=== PATIENT | female | born 1950 | race African-American/Black ===

== ENCOUNTER 2016-07-29 10:16 | Outpatient (CLI) | payer MEDICARE, BC ==
[~2016-07-29] VITALS: Ht 167.6 cm; Wt 98.8 kg
--- NOTE | ~2016-07-29 | CATH ---
Cardiac Diagnostic Report Demographics Patient Name RAYMOND GALO Gender Female A Date of 1950 Age 66 year(s) Patient Number [id number] Date of Study 07/29/2016 Visit Number [id number] Room Number G6399 [place] [id number] Ht 167.64 cm Wt 98.8 kg Referring Nasir Benson MD Primary Physician Physician Performing [place] Secondary Physician Physician Yin EDGAR Diagnostic [facility] Assisting Physician Physician Yin EDGAR Interventional Physician Group Leader [employer] Processing Physician Findings and Conclusions Diagnostic Findings and Conclusion Essentially normal epicardial coronary arteries. LVEDP=19 mmHg. Diagnostic Recommendations Patient will be discharged later today. Patient has been instructed to not lift anything more than 5 pounds for 1 week. Cardiac diet and exercise as tolerated. Optimization of medical therapy as an outpatient. Aggressive medical therapy for CV risk factors. I would like to thank Dr. Best for the opportunity to participate in the care of Mrs Nielson. Procedure Description The patient was brought to the diagnostic cardiac catheterization-EP laboratory in the fasting, non-sedated state. Informed consent was obtained in the written and verbal form after the risks and benefits were explained. The patient had no further questions and agreed to proceed. The planned puncture-incision site(s) were shaved and prepped with ChloraPrep and draped in the usual sterile manner. Conscious sedation and pain control medications were delivered by a registered nurse under physician guidance. Surface ECG rhythm, blood pressure measurement, and pulse oximetry were monitored throughout the procedure. Arterial access. The access site was infiltrated with lidocaine. The vessel was entered with the Seldinger technique. A sheath was advanced into the vessel and used for catheter placement. Selective left coronary angiography. A catheter was advanced into the left coronary vessel ostium under Fluoroscopic guidance. Contrast was injected by hand. Images were obtained in multiple projections. Selective right coronary angiography. A catheter was advanced into the right coronary vessel ostium under fluoroscopic guidance. Contrast was injected by hand. Images were obtained in multiple projections. Left heart catheterization. A catheter was advanced across the aortic valve to the left ventricle under fluoroscopic guidance. Resting hemodynamics were obtained. Arterial artery hemostasis was achieved. The patient was transferred to [facility] via cart accompanied by a nurse. The patient left the laboratory in stable condition. Diagnostic Cath Status: Elective Procedure Procedure Type Diagnostic procedure:Angiography:, Coronary Angios w/[facility] Indications: Unstable angina, Dyspnea with exertion and Fatigue. The procedure was explained in detail to the patient. Risks, complications and alternative treatments were reviewed. Written consent was obtained. Medications Reviewed with Patient prior to Procedure. Angiographic Findings Dominance: Right Cardiac Arteries and Lesion Findings LMCA: Normal (0% Stenosis). LAD: Normal (0% Stenosis). LCx: Normal (0% Stenosis). RCA: Normal (0% Stenosis). Procedure Data Procedure Date Date: 07/29/2016Start: 01:41 PMEnd: 02:05 PM Entry Locations - Antegrade Percutaneous access was performed through the Right Radial artery (Primary location). A 6 Fr sheath was inserted. Hemostasis was successfully obtained using Mechanical Compression. Closure Comments: 20 ml of air in R. Band by Tammy San.. Procedure Medications Order and Administration + + + +-------+ !Time !Medication !Dosage !Route ! + + + +-------+ !07/29/2016 01:26 PM !Versed !1 mg !I.V. ! + + + +-------+ !07/29/2016 01:33 PM !Fentanyl !25 mcg !I.V. ! + + + +-------+ !07/29/2016 01:42 PM !Versed !1 mg !I.V. ! + + + +-------+ !07/29/2016 01:45 PM !Radial Verapamil !2.5 mg !I.A. ! + + + +-------+ !07/29/2016 01:47 PM !Heparin (ACC_3) !5000 units !I.V. ! + + + +-------+ !07/29/2016 01:57 PM !Fentanyl !25 mcg !I.V. ! + + + +-------+ Devices Used - A5 Fr. BS JR 4 Diag. Catheterwas used for:Right coronary angiography. - A5 Fr. BS JL 3.5 Diag. Catheterwas used for:Left coronary angiography. - A5 Fr. BS Angled Pigtail Diag. Catheterwas used for:LV Pressures. Contrast Material - Isovue 97267 ml Fluoroscopy Time: Diagnostic: 2:24 minutes. Total: 2:24 minutes. Fluoroscopy Dose: Diagnostic: 519 mGy. Total: 519 mGy. Estimated Blood Loss: 5 ml. Medical History Allergies - Morphine. Risk Factors The patient risk factors include:obesity, hypercholesterolemia, hypertension, orally-treated diabetes mellitus, last creatinine: 0.9 mg/dl, creatinine clearance: 94.61 ml/min and dyslipidemia. Admission Data Admission Date: 07/29/2016 Admission Time: 10:16 AM Admit Source: Other Insurance Payors: Medicare. Admission Medications + +------+------+ + + + + !Medication !Dosage!Times !Last !Last !Administered !Comments ! ! ! !Per !Delivery !Delivery ! ! ! ! ! !Day !Date !Time ! ! ! + +------+------+ + + + + !Aspirin ! ! ! ! ! ! ! !(any) ! ! ! ! ! ! ! + +------+------+ + + + + !Beta ! ! ! ! ! ! ! !Peggy ! ! ! ! ! ! ! !(any) ! ! ! ! ! ! ! + +------+------+ + + + + !Statin ! ! ! ! ! ! ! !(any) ! ! ! ! ! ! ! + +------+------+ + + + + Clinical Evaluation Leading to Procedure - The patient's CAD presentation was assessed as: Unstable angina. 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 Anti-anginal medications were prescribed during the past two weeks. The medication is: Beta Blockers. - The patient has been in a state of heart failure within the past two weeks. - The patient's heart failure status was assessed as NYHA Class II, with CHF symptoms of VIZCAINO. Snapshots Hemodynamics Condition: Rest O2 Consumption: Estimated: 183.40Heart Rate: 59 bpm Pressures (mmHg) +-----+ + !Site !Pressure ! +-----+ + !LV !146/0 ,20 ! +-----+ + !LV !153/3 ,19 ! +-----+ + !AO !154/72 (107) ! +-----+ + !LV !158/8 ,24 ! +-----+ + Valve Gradients and Areas + +---------+---------+---------+ +---------+ + !Valve !Peak !Mean !Area !Index !Flow !Source ! + +---------+---------+---------+ +---------+ + !Aortic !7 !9 ! ! ! ! ! + +---------+---------+---------+ +---------+ + !Aortic !7 !9 ! ! ! ! ! + +---------+---------+---------+ +---------+ + Shunts Oxygen Values O2 Capacity 167.28 O2 Consumption 183.4 Discharge Data Discharge Date: 07/29/2016 Hospital Status: Outpatient Signatures dtt: YIN MEDINA dtd: 07/29/16 1341 Physician Self Edit
[~2016-07-29 10:16] MED LIST: ASPIRIN EC81 MG PO; JANUMET XR 1001 EACH PO; NEXIUM40 MG PO; TOPROL XL 5050 MG PO; ZOCOR20 MG PO
[2016-07-29 10:56] LABS: BASOPHIL % 0.7 %; EOSINOPHIL # 0.2 K/uL (0.0-0.5); HEMATOCRIT 37.4 % (33.0-46.0); HEMOGLOBIN 12.3 g/dL (10.0-15.0); IMMATURE GRANULOCYTE % 0.2 %; LYMPHOCYTE % 35.1 %; MCH 27.6 pg (27.0-34.0); MCHC 32.9 gm/dL (32.0-36.5); MONOCYTE # 0.5 K/uL (0.0-1.0); MONOCYTE % 8.2 %; MPV 10.1 fl (9.4-12.4); NEUTROPHIL % 51.8 %; NRBC % 0 /100WBC (0-0.00); PLATELET COUNT 225 K/uL (150-450); RBC 4.45 M/uL (3.50-5.50); RDW-CV 13.7 % (11.9-14.6); WBC 5.8 K/uL (4.0-11.0)
[2016-07-29 11:08] LABS: PROTIME 10.3 SECONDS (9.6-11.1); PTT 27 SECONDS (25-32)
[2016-07-29 11:14] LABS: ALBUMIN 3.7 gm/dL (3.5-5.0); ALK PHOS 57 IU/L (33-138); ALT 24 IU/L (12-78); ANION GAP 12.2 (10.0-19.0); AST 20 IU/L (10-40); BLOOD UREA NITROGEN 16 mg/dL (6-24); CALCIUM 9.2 mg/dL (8.5-10.5); CHLORIDE 108 mMol/L (96-110); CO2 27 mMol/L (22-32); CREATININE 0.9 mg/dL (0.5-1.1); ESTIMATED GFR (MDRD EQUATION) > 60; POTASSIUM 4.2 mMol/L (3.7-5.1); SODIUM 143 mMol/L (135-145); TOTAL BILIRUBIN 0.3 mg/dL (0.0-1.5); TOTAL PROTEIN 7.7 g/dL (6.0-8.4)
[2016-07-29] MEDS ORDERED: LASIX20 MG PO (14:43)
== END 2016-07-29 17:45 | disposition disaster alternative care site (69) ==
LOC: GCAT 10:16 → GPCU 10:16 → GPOC 17:00 → GCAT 17:45
PROVIDERS: Internal Medicine Interventional Cardiology
PROC: B2111ZZ Fluoroscopy of Multiple Coronary Arteries using Low Osmolar Contrast (ICD-10-PCS; principal; 2016-07-29)
PROC: 4A023N7 Measurement of Cardiac Sampling and Pressure, Left Heart, Percutaneous Approach (ICD-10-PCS; principal; 2016-07-29)
DX: I20.0 Unstable angina (principal); R06.00 Dyspnea, unspecified; E11.9 Type 2 diabetes mellitus without complications; I10 Essential (primary) hypertension; E78.00 Pure hypercholesterolemia, unspecified; R53.83 Other fatigue; E66.9 Obesity, unspecified; Z79.82 Long term (current) use of aspirin; Z79.84 Long term (current) use of oral hypoglycemic drugs; Z79.899 Other long term (current) drug therapy
CPT/HCPCS: J1644; J2001; J2250; J3010; J7030

== ENCOUNTER → 2016-08-20 | Outpatient (CLI) | payer MEDICARE, BC ==
[~2016-08-20] MED LIST changes: +LASIX20 MG PO
[2016-08-20 14:33] LABS: ANION GAP 9.9 (10.0-19.0); BLOOD UREA NITROGEN 13 mg/dL (6-24); CALCIUM 8.7 mg/dL (8.5-10.5); CHLORIDE 108 mMol/L (96-110); CO2 27 mMol/L (22-32); CREATININE 0.9 mg/dL (0.5-1.1); ESTIMATED GFR (MDRD EQUATION) > 60; POTASSIUM 3.9 mMol/L (3.7-5.1); SODIUM 141 mMol/L (135-145)
== END | disposition disaster alternative care site (69) ==
LOC: LNHI 14:15
PROVIDERS: Internal Medicine Interventional Cardiology
DX: I20.0 Unstable angina (principal); E11.9 Type 2 diabetes mellitus without complications; I10 Essential (primary) hypertension